=== PATIENT | male | born 1995 | race Caucasian/White ===

== ENCOUNTER 2019-09-28 18:18 | Emergency (ER) | payer MEDICAID, SELFPAY ==
[~2019-09-28] VITALS: Ht 177.8 cm; Wt 68.0 kg
--- NOTE | 2019-09-28 18:29 | NUR ---
PT PLACE IN ER LOBBY UNTIL ER BED AVAILABLE. V/S STABLE.
[2019-09-28 18:30] VITALS: BP_SYST 151
--- NOTE | 2019-09-28 18:30 | NUR ---
PT AAO AND AMBILATORY C/O DIARRHEA X 18 DAYS. PT REPORTS ONE EPISODE TODAY. V/S STABLE.
--- NOTE | 2019-09-28 18:44 | NUR ---
PLACED IN TENT FOR MD EXAM
--- NOTE | 2019-09-28 18:56 | NUR ---
DR. CONNELLY AT BEDSIDE
--- NOTE | 2019-09-28 19:00 | NUR ---
COVID SWAB DONE AND SENT TO LAB.
--- NOTE | 2019-09-28 19:05 | NUR ---
Patient given written and verbal discharge instructions and verbalizes understanding. ER MD discussed with patient the results and treatment provided. Patient in stable condition. ID arm band removed.Patient educated on pain management and to follow up with PMD. Pain Scale 0/10. Opportunity for questions provided and answered.
[2019-09-28 21:15] VITALS: BP_SYST 151
== END 2019-09-28 21:15 | disposition home or self-care (01) ==
LOC: SED 18:18
DX: R19.7 Diarrhea, unspecified (principal); Z20.828 Contact with and (suspected) exposure to other viral communicable diseases
CPT/HCPCS: 99283; U0003; C9803-CS